=== PATIENT | female | born 1955 | race Caucasian/White ===

== ENCOUNTER 2020-01-31 10:23 | Outpatient (CLI) | payer MEDICARE, SELFPAY ==
--- NOTE | 2020-01-31 10:40 | MM_ITS ---
WS: [id number] BILATERAL DIGITAL DIAGNOSTIC MAMMOGRAM MAMMOGRAPHY WITH CAD CLINICAL INFORMATION: BREAST TENDERNESS/LUMP RT 2 O'CLOCK COMPARISON: None. TECHNIQUE: Bilateral CC, MLO, and ML views. FINDINGS: Scattered fibroglandular densities bilaterally. Palpable marker near the areola right breast. No unde rlying mammographic abnormalities. Ultrasound is pending. Otherwise No suspicious focal mass, asymmetry, calcifications, or architectural distortion. ULTRASOUND BREAST RIGHT TECHNIQUE: Ultrasound right breast focused area of concern. CLINICAL INFORMATION: BREAST TENDERNESS/LUMP RT 2 O'CLOCK COMPARISON: None. FINDINGS: Ultrasound right breast at the 2:00 position. Normal underlying breast tissue. No evidence of underly ing pathologic mass or lesion. No lesions to target for biopsy. No suspicious findings. MM/[place] [id number] BI-RADS: 2-Benign FOLLOW UP: 1 Year Follow-up Recommend return to annual screening mammography.
== END 2020-01-31 10:24 | disposition home or self-care (01) ==
PROVIDERS: PCP Nurse Practitioner Family; Visit Provider Nurse Practitioner Family
DX: N63.12 Unspecified lump in the right breast, upper inner quadrant (principal); N64.4 Mastodynia
CPT/HCPCS: 76642; 77066

== ENCOUNTER → 2022-06-09 08:52 | Outpatient (BNVA) | payer MEDICARE, SELFPAY | PROVIDERS: PCP Clinical Nurse Specialist Adult Health; Visit Provider Clinical Nurse Specialist Adult Health | DX: R55 Syncope and collapse (principal); R53.83 Other fatigue; G25.81 Restless legs syndrome; J30.9 Allergic rhinitis, unspecified; M25.562 Pain in left knee | CPT/HCPCS: 80053; 85025 ==

== ENCOUNTER → 2022-07-07 08:13 | Outpatient (BNVA) | payer MEDICARE, SELFPAY | PROVIDERS: PCP Clinical Nurse Specialist Adult Health; Referring Provider Clinical Nurse Specialist Adult Health; Visit Provider Orthopaedic Surgery | DX: M76.52 Patellar tendinitis, left knee (principal) | CPT/HCPCS: 73560; 73565; 99203; J3301; J3490 ==

== ENCOUNTER 2022-11-18 12:06 | Outpatient (CLI) | payer MEDICARE, SELFPAY ==
--- NOTE | 2022-11-18 12:30 | CT_ITS ---
WS: [id number] CT ABDOMEN PELVIS TECHNIQUE: Noncontrast CT of the abdomen and pelvis with coronal and sagittal reformatted images. CLINICAL INFORMATION: RUQ pain, epigastric pain, RLQ pain COMPARISON: None. DLP: 784.[address] scans at [facility] use at least one of these dose optimization techniques: automated e xposure control; mA and/or kV adjustment per patient size (includes targeted exams where dose is matc hed to clinical indication); or iterative reconstruction. FINDINGS: Prior cholecystectomy. Prior hysterectomy. RIGHT nephrectomy. Postoperative changes greater curvature the stomach likely gastric sleeve or gastric bypass. The Noncontrast liver is normal. No intrahepatic biliary ductal dilatation. No significant dilatation of the common bile duct. Mild fatty atrophy of the pancreas. Enlargement of the RIGHT hepatic lobe. Noncontrast spleen appears normal. LEFT adrenal gland is normal. RIGHT adren al gland and RIGHT kidney resected. Normal nephrectomy bed. LEFT peripelvic cysts. No hydronephrosis in LEFT kidney. Normal caliber abdominal aorta. Mild aortic calcification. Sigmoid diverticulosis. No evidence of acu te diverticulitis. Colon is decompressed. No evidence of small or large bowel obstruction. Small fat-containing umbilical hernia. No abdominal or pelvic lymphadenopathy. No inguinal lymphadenopathy. 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 CT/CT abdomen pelvis wo con [id number] IMPRESSION: 1. Prior cholecystectomy. No common bile duct dilatation. No intrahepatic bili syd[place] dilatation. 2. Sigmoid diverticulosis. No evidence of acute diverticulitis. 3. Prior postoperative changes hysterectomy and gastric procedure. 4. Prior postoperative changes RIGHT nephrectomy with resection of the RIGHT a drenal gland. Normal RIGHT nephrectomy bed. No recurrence in this location. 5. No other acute findings.
== END 2022-11-18 12:07 | disposition home or self-care (01) ==
PROVIDERS: PCP Clinical Nurse Specialist Adult Health; Visit Provider Clinical Nurse Specialist Adult Health
DX: R13.10 Dysphagia, unspecified (principal); R10.11 Right upper quadrant pain; R10.31 Right lower quadrant pain; Z90.49 Acquired absence of other specified parts of digestive tract; K57.30 Diverticulosis of large intestine without perforation or abscess without bleeding; Z90.5 Acquired absence of kidney
CPT/HCPCS: 74176; 80053; 82150; 83690; 85025; 85651; 86140

== ENCOUNTER → 2022-11-30 13:07 | Outpatient (BNVA) | payer MEDICARE, SELFPAY | PROVIDERS: PCP Clinical Nurse Specialist Adult Health; Visit Provider Clinical Nurse Specialist Adult Health | DX: E87.6 Hypokalemia (principal) | CPT/HCPCS: 80053 ==

== ENCOUNTER 2022-12-06 11:07 | Emergency (ER) | payer MEDICARE, SELFPAY ==
[2022-12-06 11:15] VITALS: BP 173/98; PULSE 93; O2SAT 94; BMI 37.5
[2022-12-06 12:14] LABS: Basophils % 0.4 %; Eosinophils % 0.2 %; Hematocrit 44.8 % (37.0-47.0); Hemoglobin 14.2 g/dL (11.5-15.3); Lymphocytes # 1.4 10^3/uL (0.8-4.8); Lymphocytes % 15.3 %; Mean Corpuscular HGB Conc 31.7 g/dL (30.0-36.0); Mean Corpuscular Hemoglobin 27.9 pg (28.0-34.0); Mean Platelet Volume 9.9 fL (7.4-10.4); Monocytes # 0.5 10^3/uL (0.2-0.9); Neutrophils # 7.05 10^3/uL (1.8-7.7); Neutrophils % 78.7 %; Nucleated Red Blood Cells % 0 %; Platelet Count 205 10^3/cmm (130-400); Red Blood Count 5.09 10^6/uL (4.1-5.3)
[2022-12-06 12:28] LABS: Lactate (Lactic Acid level) 1.2 mmol/L (0.5-2.2)
[2022-12-06 12:29] LABS: Alanine Aminotransferase 12 U/L (0-33); Albumin Level 4.2 g/dL (3.5-5.2); Alkaline Phosphatase 49 U/L (35-105); Anion Gap 16.7 (5-19); Aspartate Amino Transferase 16 U/L (0-32); Blood Urea Nitrogen 22 mg/dL (8-23); Calcium 9.5 mg/dL (8.5-10.5); Carbon Dioxide 25 mmol/L (22-29); Chloride 102 mmol/L (98-107); Globulin 2.8 g/dL (1.3-4.6); Glomerular Filtration Rate 37.4 mL/min (90-130); Glucose 142 mg/dL (65-115); Lipase 19 U/L (13-60); Magnesium 1.8 mg/dL (1.7-2.3); Osmolality Calculated 296 mOsm/kg (285-295); Potassium 3.7 mmol/L (3.5-5.1); Sodium 140 mmol/L (136-145); Total Bilirubin 0.4 mg/dL (0.15-1.2)
--- NOTE | 2022-12-06 14:30 | ED_ITS ---
HPI - Abdominal Pain General: Chief Complaint: Abdominal Pain Stated Complaint: n/v/d Time Seen by Provider: 12/06/22 14:19 History of Present Illness: Ms. Vilchis is a 67-year-old lady with history of diverticulitis presenting to the emergency department for nausea, vomiting, diarrhea and abdominal pain. She reports onset of symptoms subacute this morning with numerous episodes of nonbilious and nonbloody emesis associated with diarrhea. Symptoms have persisted since onset. Moderate to severe in intensity. Periumbilical pain without significant radiation. No other specific changes in health, exacerbating, or alleviating factors identified. Onset (ago): hour(s) Pain Consistency: constant Location: Diffuse and LLQ Severity: moderate Migration to: no migration Exacerbating factors: eating and movement Associated Symptoms: Reports chills, diarrhea, nausea and vomiting Review of Systems General: Reports: 10 or more systems reviewed and unremarkable except in HPI and below Const: Reports: chills GI: Reports: nausea, vomiting and diarrhea PFSH ED PFSH: Medical History Diverticulitis Essential hypertension Foot fracture, left hx of left foot fracture, February 2019 Hyperlipidemia IBS (irritable bowel syndrome) DONA (obstructive sleep apnea) uses CPAP Renal cancer 2008 Splenic artery aneurysm hx of splenic aneurysm February 2019 Surgical History History of right nephrectomy Hx of cholecystectomy Hx of hysterectomy Family History Mother Cancer ovarian cancer Father Cancer renal cancer Social History Smoking and tobacco status: never smoked Alcohol intake: never 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 occupational status: 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 Physical Exam Const: COMMON NORMALS: alert GENERAL APPEARANCE: cooperative and well developed HENMT: COMMON NORMALS: normocephalic and atraumatic HEAD & SCALP: normo cephalic and atraumatic Eye: COMMON NORMALS: conjunctivae normal CONJUNCTIVA: Yes conjunctivae normal SCLERA: sclerae normal Neck/C-Spine: COMMON NORMALS: supple GENERAL: Yes trachea midline Resp: COMMON NORMALS: clear to auscultation bilaterally EFFORT & INSPECTION: Yes able to speak in complete sentences AUSCULTATION: clear to auscultation bilaterally Cardio: COMMON NORMALS: regular rate and regular rhythm RATE: regular rate RHYTHM: regular rhythm GI: COMMON NORMALS: Soft to palpation PALPATION: Yes Soft to palpation, Yes Tenderness to palpation present (GI), No Guarding due to palpation present (GI) and No Rigid due to palpation Extremity: GENERAL: Yes normal exam except as noted and No edema Neuro: COMMON NORMALS: moves all extremities SENSORIUM/ORIENTATION: Yes al ert and No Orientation impaired Psych: COMMON NORMALS: mental status grossly normal and Normal thought process present THOUGHT PROCESS: Normal thought process present Course Vital Signs: Vital signs: Vital Signs Temperature 97.5 F L 12/06/22 14:32 Pulse Rate 90 12/06/22 20:09 Respiratory Rate 16 12/06/22 20:09 Blood Pressure 173/98 12/06/22 11:15 Pulse Oximetry 97 12/06/22 20:09 Oxygen Delivery Me thod Room Air 12/06/22 19:00 MDM - Abdominal Pain Medical Decision Making 67-year-old lady presenting with abdominal symptoms x1 day. She is nontoxic in appearance. She has abdominal tenderness with no evidence of acute surgical abdomen. EKG demonstrates sinus tachycardia with normal axis and intervals, no STEMI. No significant hematologic abnormalities. Metabolic panel with mildly elevated creatinine, lactate is normal. No evidence of urinary tract infection. CT demonstrates no acute intra-abdominal pathology. Incidental findings disc ussed with patient. Patient treated with antiemetic, analgesia and after additional treatments feels improved. Etiology of patient's symptoms is unspecified abdominal pain associated with nausea, vomiting, diarrhea. Given ability to control patient's symptoms in the emergency department she is adequate for outpatient management. The results of ED evaluation were discussed with the patient including prescriptions and/or symptomatic cares (if applicable) including appropriate and responsible use, followup plan, and return precautions. The patient verbalized understanding and felt safe for discharge. Medical Records I reviewed the patient's medical records. Lab Data I reviewed the patient's lab results. 12/06/22 11:54 12/06/22 11:54 Labs/Radiology: Radiology Impressions Abdomen/Pelvis CT 12/06/22 15:16 IMPRESSION: No acute findings. Laboratory Results WBC 9.0 10^3/uL (4.0-10.0) 12/06/22 11:54 RBC 5.09 10^6/uL (4.1-5.3) 12/06/22 11:54 Hgb 14.2 g/dL (11.5-15.3) 12/06/22 11:54 Hct 44.8 % (37.0-47.0) 12/06/22 11:54 MCV 88.0 fl (81-99) 12/06/22 11:54 MCH 27.9 pg (28.0-34.0) L 12/06/22 11:54 MCHC 31.7 g/dL (30.0-36.0) 12/06/22 11:54 RDW 14.0 % (12.1-15.1) 12/06/22 11:54 Plt Count 205 10^3/cmm (130-400) 12/06/22 11:54 MPV 9.9 fL (7.4-10.4) 12/06/22 11:54 Neut % (Auto) 78.7 % 12/06/22 11:54 Lymph % (Auto) 15.3 % 12/06/22 11:54 Dewey % (Auto) 5.0 % 12/06/22 11:54 Eos % (Auto) 0.2 % 12/06/22 11:54 Baso % (Auto) 0.4 % 12/06/22 11:54 Neut # (Auto) 7.05 10^3/uL (1.8-7.7) 12/06/22 11:54 Lymph # (Auto) 1.4 10^3/uL (0.8-4.8) 12/06/22 11:54 Dewey # (Auto) 0.5 10^3/uL (0.2-0.9) 12/06/22 11:54 Eos # (Auto) 0.0 10^3/uL (0.0-0.8) 12/06/22 11:54 Baso # (Auto) 0.0 10^3/uL (0.0-0.1) 12/06/22 11:54 Nucleated RBC % (auto) 0 % 12/06/22 11:54 Nucleated RBCs # 0.0 /100WBC 12/06/22 11:54 Sodium 140 mmol/L (136-145) 12/06/22 11:54 Potassium 3.7 mmol/L (3.5-5.1) 12/06/22 11:54 Chloride 102 mmol/L (98-107) 12/06/22 11:54 Carbon Dioxide 25 mmol/L (22-29) 12/06/22 11:54 Anion Gap 16.7 (5-19) 12/06/22 11:54 BUN 22 mg/dL (8-23) 12/06/22 11:54 Creatinine 1.4 mg/dL (0.5-0.9) H 12/06/22 11:54 GFR Calculation 37.4 mL/min (90-130) L 12/06/22 11:54 Glucose 142 mg/dL (65-115) H 12/06/22 11:54 Calculated Osmolality 296 mOsm/kg (285-295) H 12/06/22 11:54 Lactate 1.2 mmol/L (0.5-2.2) 12/06/22 11:54 Calcium 9.5 mg/dL (8.5-10.5) 12/06/22 11:54 Magnesium 1.8 mg/dL (1.7-2.3) 12/06/22 11:54 Total Bilirubin 0.4 mg/dL (0.15-1.2) 12/06/22 11:54 AST 16 U/L (0-32) 12/06/22 11:54 ALT 12 U/L (0-33) 12/06/22 11:54 Alkaline Phosphatase 49 U/L (35-105) 12/06/22 11:54 Total Protein 7.0 g/dL (6.6-8.7) 12/06/22 11:54 Albumin 4.2 g/dL (3.5-5.2) 12/06/22 11:54 Globulin 2.8 g/dL (1.3-4.6) 12/06/22 11:54 Lipase 19 U/L (13-60) 12/06/22 11:54 Urine Color Straw (Yellow) 12/06/22 16:48 Urine Appearance Clear (CLEAR) 12/06/22 16:48 Urine pH 5 (5-7) 12/06/22 16:48 Ur Specific [place] 1.005 (1.005-1.030) 12/06/22 16:48 Urine Protein 1+ (Negative) H 12/06/22 16:48 Urine Glucose (UA) Norm (Normal) 12/06/22 16:48 Urine Ketones Negative (Negative) 12/06/22 16:48 Urine Blood Trace (Negative) H 12/06/22 16:48 Urine Nitrate Negative (Negative) 12/06/22 16:48 Urine Bilirubin Neg (Negative) 12/06/22 16:48 Urine Urobilinogen Norm mg/dL (Negative) 12/06/22 16:48 Ur Leukocyte Esterase Negative (Negative) 12/06/22 16:48 Urine RBC Rare /hpf (0-2) 12/06/22 16:48 Urine WBC 0-4 /hpf (0-5) H 12/06/22 16:48 Ur Squamous Epith Cells 0-4 /hpf (0-5) H 12/06/22 16:48 Amorphous Sediment Not Reportable 12/06/22 16:48 Urine Bacteria Trace /hpf (NONE) 12/06/22 16:48 Discharge Plan Discharge Patient Disposition: Home Clinical Impression: Abdominal pain, Nausea and vomiting Condition: Stable Prescriptions: New ondansetron 4 mg tablet,disintegrating 4 mg PO Q8H PRN (Reason: nausea and vomiting) Qty: 15 0RF No Action albuterol sulfate 90 mcg/actuation HFA aerosol inhaler 2 inh inhalation QID PRN (Reason: shortness of breath or wheezing) Qty: 8.5 2RF ropinirole 0.5 mg tablet 0.5 mg PO DAILY PRN (Reason: restless leg(s)) 90 Days Qty: 90 3RF potassium chloride 20 mEq tablet extended release 20 meq PO BID 90 Days Qty: 180 3RF amoxicillin-pot clavulanate [Augmentin] 500-125 mg tablet 1 tab PO TID 7 Days Qty: 21 0RF colesevelam [WelChol] 625 mg tablet 625 mg PO BID 90 Days Qty: 180 3RF atorvastatin 20 mg tablet 20 mg PO BEDTIME hydrochlorothiazide 25 mg tablet 25 mg PO QAM losartan 100 mg tablet 100 mg PO BEDTIME escitalopram oxalate 10 mg tablet 10 mg PO QAM Discharge Orders: Discharge ED (Routine); Ordered 12/06/22 Ordered By: Tyrel Fisher Referrals: Michael Kelly, [employer] [Primary Care Provider] - Discharge Diet: Advance as tolerated and Clear Liquid Discharge Activity: Increase activity as tolerated Patient Instructions: Acute Nausea and Vomiting (ED), Abdominal Pain (ED), Opioid Safety (ED) Activity Restrictions/Additional Instructions: Thank you for visiting the emergency department. You were seen and evaluated for abdominal pain with nausea and vomiting. The exact cause of your symptoms is unclear however does not appear to need hospitalization at this time given improvement. Follow-up with your primary care provider. Start with clear liquid diet and advance slowly as tolerated starting with bland foods. Return to the emergency department for worsening of symptoms or anything else that you are concerned about and feel needs emergency department evaluation. Coding Level of Care Code ED Code Enforcement Officer for Marino Weaver
[2022-12-06 14:32] VITALS: TEMP 36.4
[2022-12-06] MEDS: sodium chloride 0.9% 1,000 ML 999 ML IV (15:05)
[2022-12-06] MEDS: ondansetron 2 mg/ML SDV 2 mL 4 MG IVP (15:05)
[2022-12-06] MEDS: fentaNYL 50 mcg/mL INJ 2mL IVP (15:12)
--- NOTE | 2022-12-06 15:16 | CTR_ITS ---
PROCEDURE INFORMATION: Exam: CT Abdomen And Pelvis With Contrast Exam date and time: 12/06/2022 3:34 PM Age: 67 years old Clinical indication: Nausea and vomiting; Abdominal pain; Periumbilical; Prior surgery; Surgery date: 6+ months; Surgery type: R kidney, gb, hyster; Additional info: Periumbilical pain, nausea, vomiting, diarrhea TECHNIQUE: Imaging protocol: Computed tomography of the abdomen and pelvis with contrast. Radiation optimization: All CT scans at this facility use at least one of these dose optimization techniques: automated exposure control; mA and/or kV adjustment per patient size (includes targeted exams where dose is matched to clinical indication); or iterative reconstruction. Contrast material: OMNI 350; Contrast volume: 80 ml; Contrast route: INTRAVENOUS (IV); REPORTING DATA: Count of CT and Cardiac NM exams in prior 12 months: This patient has received [address] and 0 known cardiac nuclear medicine studies in the 12 months prior to the current study. COMPARISON: CT abdomen pelvis wo con [id number] 11/18/2022 12:26 PM RADIATION DOSE METRICS: Total DLP (mGy-cm): 967.05 FINDINGS: Liver: Normal. No mass. Gallbladder and bile ducts: Cholecystectomy. No ductal dilation. Pancreas: Normal. No ductal dilation. Spleen: Normal. No splenomegaly. Adrenal glands: Right adrenalectomy. Left adrenal gland is unremarkable. Kidneys and ureters: Right nephrectomy. Left perirenal cysts again noted. No hydronephrosis. Stomach and bowel: Colonic diverticulosis without findings of acute diverticulitis. Sequela of gastric sleeve. No obstruction. No mucosal thickening. Appendix: No evidence of appendicitis. Intraperitoneal space: Unremarkable. No free air. No significant fluid collection. Vasculature: Unremarkable. No abdominal aortic aneurysm. Lymph nodes: Unremarkable. No enlarged lymph nodes. Urinary bladder: Unremarkable as visualized. Reproductive: Hysterectomy. Bones/joints: No acute fracture. Soft tissues: Unremarkable. CT/CT abdomen pelvis w con* [id number] IMPRESSION: No acute findings.
[2022-12-06 15:30] VITALS: PULSE 103; O2SAT 100
[2022-12-06] MEDS: iohexol 350 mg/mL 500 mL Btl (per mL) IV (15:38)
[2022-12-06] MEDS: metoclopramide 5 mg/mL SDV 2 mL 10 MG IVP (15:55)
[2022-12-06] MEDS: dicyclomine 10 mg Capsule PO (16:25)
[2022-12-06 17:00] VITALS: PULSE 103; O2SAT 97
[2022-12-06] MEDS: diphenhydrAMINE 50 mg/mL SDV 1mL 12.5 MG IVP (17:07)
[2022-12-06 17:11] LABS: Add Urine Microscopic? YES; Bilirubin Urine Neg (Negative); Blood Urine Trace (Negative); Glucose Urine UA Norm (Normal); Ketones Urine Negative (Negative); Leukocyte Esterase Urine Negative (Negative); Nitrate Urine Negative (Negative); Protein Urine 1+ (Negative); Specific Gravity, Urine 1.005 (1.005-1.030); Urine Appearance Clear (CLEAR); Urine Color Straw (Yellow); Urobilinogen Urine Norm (Negative); pH Urine 5 (5-7)
[2022-12-06] MEDS: prochlorperazine 10 mg/2 mL Inj 5 MG IVP (17:14)
[2022-12-06 17:26] LABS: Add Urine Culture? No; Bacteria Urine TRACE /hpf; RBC Urine RARE /hpf (0-2); Squamous Epithelial Cell Urine 0-4 /hpf (0-5); WBC Urine 0-4 /hpf (0-5)
[2022-12-06 19:00] VITALS: PULSE 90; RESP 16; O2SAT 97
--- NOTE | 2022-12-06 19:08 | PC.NURSE ---
Shift report received from Benjamín Moon RN. Pt is resting on right side. Family at bedside. pt states her nausea is better and abd pain is gone.
--- NOTE | 2022-12-06 19:21 | ECG_ITS ---
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 Measurements Intervals Cub Run Rate: 109 P: 64 AR: 197 QRS: 30 QRSD: 72 T: 60 QT: 338 QTc: 456 Interpretive Statements SINUS TACHYCARDIA ABNORMAL RHYTHM ECG No previous ECG available for comparison Electronically Signed On 12-07-2022 14:26:46 CDT by Merritt Arreguin M.D. [email or web address]
--- NOTE | 2022-12-06 19:46 | PC.NURSE ---
pt up to restroom with family member at this time
[2022-12-06 20:09] VITALS: PULSE 90; RESP 16; O2SAT 97
== END 2022-12-06 20:10 | disposition home or self-care (01) ==
PROVIDERS: Emergency Provider Emergency Medicine; PCP Clinical Nurse Specialist Adult Health
DX: R10.32 Left lower quadrant pain (principal); R11.2 Nausea with vomiting, unspecified; I10 Essential (primary) hypertension; E78.5 Hyperlipidemia, unspecified; Z85.528 Personal history of other malignant neoplasm of kidney; Z90.5 Acquired absence of kidney
CPT/HCPCS: 36415; 74177; 80053; 81001; 83605; 83690; 83735; 85025; 93005; 96361; 96374; 96375; 99285; J0780; J1200; J2405; J2765; J3010; J7030; Q9967

== ENCOUNTER → 2023-01-04 09:11 | Outpatient (BNVA) | payer MEDICARE, SELFPAY | PROVIDERS: PCP Clinical Nurse Specialist Adult Health; Visit Provider Clinical Nurse Specialist Adult Health | DX: E87.6 Hypokalemia (principal) | CPT/HCPCS: 80048 ==

== ENCOUNTER → 2023-03-08 07:50 | Outpatient (BNVA) | payer MEDICARE, SELFPAY | PROVIDERS: PCP Clinical Nurse Specialist Adult Health; Referring Provider Clinical Nurse Specialist Adult Health; Visit Provider Nurse Practitioner Family | DX: L57.0 Actinic keratosis (principal); Z85.828 Personal history of other malignant neoplasm of skin; L57.8 Other skin changes due to chronic exposure to nonionizing radiation; L85.3 Xerosis cutis; D22.5 Melanocytic nevi of trunk; L81.4 Other melanin hyperpigmentation; L82.1 Other seborrheic keratosis | CPT/HCPCS: 17004; 99203 ==

== ENCOUNTER → 2023-05-31 08:56 | Outpatient (BNVA) | payer MEDICARE, SELFPAY | PROVIDERS: PCP Clinical Nurse Specialist Adult Health; Visit Provider Clinical Nurse Specialist Adult Health | DX: L65.9 Nonscarring hair loss, unspecified (principal); N18.30 Chronic kidney disease, stage 3 unspecified | CPT/HCPCS: 80053; 82607; 82728; 82746; 83550; 84436; 84443; 84481; 85025 ==

== ENCOUNTER 2023-06-04 10:18 | Outpatient (CLI) | payer MEDICARE, SELFPAY ==
--- NOTE | 2023-06-04 10:28 | MM_ITS ---
WS: [id number] Bilateral screening 3D tomosynthesis digital mammogram, 06/04/2023 Clinical Data: Z00.00 - Encounter for general adult medical examination ... Comparison: 01/31/2020, 09/29/2017, 01/03/2016. Findings: The breast parenchymal pattern shows fibroglandular tissue. No spiculated masses or clustered calcifi cations are seen. There are no secondary signs of carcinoma. Impression: 1. Negative bilateral mammogram unchanged. 2. Recommend annual screening mammograms. MM/[place] [id number] BIRADS: 1-Negative FOLLOW UP: 1 Year Follow-up The CAD chemical checker was used.
== END 2023-06-04 10:19 | disposition home or self-care (01) ==
LOC: RAD 10:19
PROVIDERS: PCP Clinical Nurse Specialist Adult Health; Visit Provider Clinical Nurse Specialist Adult Health
DX: Z12.31 Encounter for screening mammogram for malignant neoplasm of breast (principal)
CPT/HCPCS: 77063; 77067

== ENCOUNTER 2024-02-18 06:31 | Outpatient (CLI) | payer MEDICARE, SELFPAY ==
--- NOTE | 2024-02-18 06:51 | MR_ITS ---
WS: [id number] MRI/MRCP OF THE ABDOMEN WITHOUT GADOLINIUM ENHANCEMENT TECHNIQUE: Coronal T2 Fase BH, Axial T2 Fase BH, Axial T2 FS BH, Zxial 3D Mancuso BH, Axial DWI BH, 2D MRCP Radial BH, 3D MRCP (Resp), and Axial 3D Dyn BH Post sequences. CLINICAL INFORMATION: spasm sphinter of Oddi COMPARISON: CT 12/06/2022 FINDINGS: Prior cholecystectomy. Prior RIGHT adrenalectomy and nephrectomy. LEFT adrenal gland is normal. LEFT pararenal cysts. No hydronephrosis. Normal spleen. Postoperative changes gastric surgery with small e sophageal hiatal hernia. Normal pancreas. Normal portal vein and splenic vein. Normal caliber upper a bdominal aorta. No bile duct dilatation. No evidence of choledocholithiasis. No pancreatic duct dilat ation. Few tiny hepatic cysts. MR/MR MRCP [id number] Impression: 1. Prior cholecystectomy. 2. No bile duct dilatation or filling defects. 3. Normal pancreas. 4. Prior RIGHT adrenalectomy and RIGHT nephrectomy.
== END 2024-02-18 06:32 | disposition home or self-care (01) ==
LOC: RAD 06:32
PROVIDERS: PCP Clinical Nurse Specialist Adult Health; Visit Provider Internal Medicine
DX: K83.4 Spasm of sphincter of Oddi (principal); Z90.49 Acquired absence of other specified parts of digestive tract; Z90.5 Acquired absence of kidney; N28.1 Cyst of kidney, acquired; K44.9 Diaphragmatic hernia without obstruction or gangrene
CPT/HCPCS: 74181

== ENCOUNTER → 2024-03-06 08:10 | Outpatient (BNVA) | payer MEDICARE, SELFPAY | PROVIDERS: PCP Clinical Nurse Specialist Adult Health; Visit Provider Nurse Practitioner Family | DX: D48.5 Neoplasm of uncertain behavior of skin (principal); L57.8 Other skin changes due to chronic exposure to nonionizing radiation; L85.3 Xerosis cutis; D22.5 Melanocytic nevi of trunk; L81.4 Other melanin hyperpigmentation; L82.1 Other seborrheic keratosis | CPT/HCPCS: 11102; 99213 ==

== ENCOUNTER 2024-03-28 07:51 | Outpatient (CLI) | payer MEDICARE, SELFPAY ==
--- NOTE | 2024-03-28 07:54 | FL_ITS ---
WS: [id number] Examination: FL barium enema w air* [id number] Reason for Exam: SPASM,SPHINCTER OF ODDI diarrhea. Concern for obstruction. Irritable bowel syndrome. History of recent colonoscopy. By patient's report no polyps were found Date: March 28, 2024 Comparison: None. Findings: An air-contrast barium enema was performed. Barium and air were instilled to the level of the cecum. Diverticulosis is identified involving the descending and sigmoid colons. Initially there was narrowi ng/spasm involving the sigmoid which was later noted to distend and not represent a persistent strict ure. There is no annular constricting lesion. There is no evidence to suggest inflammatory bowel disease o r ischemic change. No persistent filling defects were identified. Minimal stool seen in the right colon. FL/FL barium enema w air* [id number] Impression: There is no colonic obstruction. There is diverticulosis with suspected spasm in the sigmoid region.
== END 2024-03-28 07:52 | disposition home or self-care (01) ==
LOC: RAD 07:51
PROVIDERS: PCP Clinical Nurse Specialist Adult Health; Visit Provider Internal Medicine
DX: K57.30 Diverticulosis of large intestine without perforation or abscess without bleeding (principal); K58.0 Irritable bowel syndrome with diarrhea
CPT/HCPCS: 74280

== ENCOUNTER → 2024-07-17 10:44 | Outpatient (BNVA) | payer MEDICARE, SELFPAY | PROVIDERS: PCP Clinical Nurse Specialist Adult Health; Visit Provider Internal Medicine Cardiovascular Disease | DX: R07.9 Chest pain, unspecified (principal); Z79.01 Long term (current) use of anticoagulants; R53.1 Weakness; I48.91 Unspecified atrial fibrillation | CPT/HCPCS: 36415; 80053; 84443; 85025; 85610; 93005; 99205 ==

== ENCOUNTER 2024-08-07 08:27 | Outpatient (CLI) | payer MEDICARE, SELFPAY ==
--- NOTE | 2024-08-07 08:30 | ECG_ITS ---
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 Interpretive Statements Lung unchanged pre/post procedure; Intraprocedure shortess of breath; Symptoms resoled by discharge PROCEDURE: At the baseline, the EKG revealed normal sinus rhythm with normal ST Ts. The baseline heart was 79 bpm with a blood pressue of 150/76 mm of Hg Lexiscan was infused over a period of 20 seconds. A total of 0.4 milligrams of Lexiscan was infused. The stress phase was continued for a total of 5 minutes. Heart rate at the end of the stress phase was 89 bpm with a blood pressure 139/71 mm of Hg. The EKG at the peak infusion revealed no significant changes. Sestamibi was injected 20 seconds after the Lexiscan infusion. Heart rate at the end of the recovery phase was 82 bpm with a blood pressure of 141/64 mm of Hg. CONCLUSION: 1. No significant EKG changes with the LexiScan infusion 2. No LexiScan induced chest pain or cardiac arrhythmia 3. Normal blood pressure and heart rate response 4. Sestamibi/sestamibi perfusion scan pending; see separate report. Electronically Signed On 08-11-2024 16:00:44 [employer]TER by Karo Barrett M.D. [email or web address]
--- NOTE | 2024-08-07 08:31 | NMCV_ITS ---
NM sunil perf SPECT r/s* [id number] Verito Nam Age: 69 Gender: F : 1955 Exam Date: 08/07/2024 08:31 Ordering Phys: Technologist: YAAKOV Mnan Exam Location: [facility] Indications: cp STRESS TEST Please see separate stress test report in [facility] for full findings IMAGE PROTOCOL Rest/Stress 1 Lexiscan Day Radiopharmaceutical Dose (mCi) Administration Site Administered by Rest: Tc-99m 10.8 IV YAAKOV Mann Sestamibi Stress:Tc-99m 32.9 IV YAAKOV Arora Sestamibi Rest: 07-Aug-2024 60 Discovery 630 Stress: 07-Aug-2024 30 Discovery 630 0.4mg Lexiscan. Images obtained in supine and prone position. SPECT RESULTS Technical Quality: Good Raw Data Analysis: Normal Image Corrections: No attenuation or motion correction applied Summed Stress Score: 0 Summed Rest Score: 0 Summed Difference Score: 0 PERFUSION FINDINGS Fairly uniform myocardial tracer uptake with no significant Perfusion abnormalities. FUNCTIONAL RESULTS (calculated via Gated SPECT) Stress Image LV EF (%): 74 Stress EDV (mL):101 TID: 1.11 Stress ESV (mL):26 FUNCTIONAL FINDINGS: Segmental wall motion analysis revealing no gross wall motion abnormalities IMPRESSIONS 1, Myocardial perfusion imaging revealing uniform myocardial tracer uptake with no significant Perfusion abnormalities. 2, normal LV ejection fraction of 74%. 3. LV wall motion analysis revealing no gross wall motion abnormalities.. 4. Normal LV volume Low probability for coronary ischemia, based on the above findings Dr Karo Barrett MD FAC (Electronically Signed) Final Date: 07 August 2024 19:20 S
[2024-08-07 08:40] VITALS: BMI 39.1
[2024-08-07] MEDS: regadenoson 0.4 Mg/5 ml Syringe IVP (10:07)
[2024-08-07 10:20] VITALS: BP 141/64; PULSE 82
== END 2024-08-07 08:28 | disposition home or self-care (01) ==
LOC: CDL 08:28
PROVIDERS: PCP Clinical Nurse Specialist Adult Health; Visit Provider Internal Medicine Cardiovascular Disease
DX: Z98.61 Coronary angioplasty status (principal); R06.02 Shortness of breath
CPT/HCPCS: 36415; 78452; 93017; 96374; A9500; J2785

== ENCOUNTER 2024-08-07 11:36 | Outpatient (CLI) | payer MEDICARE, SELFPAY ==
--- NOTE | 2024-08-07 14:00 | USCV_ITS ---
Verito Nam Age: 69 Gender: F : 1955 Exam Date: 08/07/2024 11:49 Ordering Phys: Karo Barrett MD ([email or web address]) Technologist: CT Exam Location: [facility] Indication: BP: 140 / 87 HR: 70 Rhythm: Sinus Technical Quality: Adequate MEASUREMENTS (Male / Female) Normal Values 2D ECHO LVOT Diameter 2.0 cm LV Ejection Fraction MOD 4C 71.6 % LV Ejection Fraction MOD 2C 75.0 % LV Ejection Fraction 2C AL 75.3 % LA Diameter 4.2 cm RA Systolic Volume 4C AL 51.2 ml RA Systolic Volume 4C MOD 52.2 ml LA Sys Volume AL 85.0 cm cubed LA Sys Volume Index AL 38.6 cm cubed/m squared Aorta at Sinotubular Diameter 2.7 cm M-MODE LA Ao Ratio MM 1.5 AV Cusp Separation MM 2.0 cm DOPPLER AV Peak Velocity 215.0 cm/s LVOT Peak Velocity 134.0 cm/s AV Area Cont Eq vti 2.2 cm squared AV Area Cont Eq pk 2.0 cm squared MV Peak Velocity 93.0 cm/s MV Area PHT 2.8 cm squared Mitral E to A Ratio 0.8 TR Peak Velocity 288.5 cm/s TR Peak Gradient 33.3 mmHg TR Mean Velocity 230.0 cm/s TR Mean Gradient 22.8 mmHg TR Velocity Time Integral 85.2 cm TV Peak E Velocity 79.0 cm/s PV Peak Velocity 96.0 cm/s FINDINGS Left Ventricle Normal left ventricular size and systolic function, EF 75%.no regional wall motion abnormalities. Mild left ventricular hypertrophy. Grade I/IV diastolic dysfunction (abnormal relaxation filling pattern), normal to mildly elevated filling pressures. Right Ventricle The right ventricle is normal in size and function. Right Atrium The right atrium is normal in size. Left Atrium Mildly increased left atrial size. Mitral Valve Mild mitral valve regurgitation. Aortic Valve Thickened aortic valve. Mild aortic valve regurgitation. Tricuspid Valve Trace tricuspid valve regurgitation. Estimated pulmonary artery peak systolic pressure 26 mmHg Pulmonic Valve No gross abnormalities noted Pericardium Normal pericardium without effusion. Aorta Normal ascending aorta dimension. IVC Inferior vena cava not visualized. CONCLUSIONS Normal left ventricular size and systolic function, EF 75%.no regional wall motion abnormalities. Mild left ventricular hypertrophy. Grade I/IV diastolic dysfunction (abnormal relaxation filling pattern), normal to mildly elevated filling pressures. Mildly increased left atrial size. Mild mitral valve regurgitation. Thickened aortic valve. Mild aortic valve regurgitation. Trace tricuspid valve regurgitation. Estimated pulmonary artery peak systolic pressure 26 mmHg. There is no pericardial effusion. There are no intracardiac masses. No similar previous studies are available for comparison Dr Karo Barrett MD [facility] (Electronically Signed) Final Date: 10 August 2024 20:32 S
== END 2024-08-07 11:37 | disposition home or self-care (01) ==
LOC: RAD 11:38
PROVIDERS: PCP Clinical Nurse Specialist Adult Health; Visit Provider Internal Medicine Cardiovascular Disease
DX: I50.30 Unspecified diastolic (congestive) heart failure (principal); R06.09 Other forms of dyspnea; I35.9 Nonrheumatic aortic valve disorder, unspecified
CPT/HCPCS: 93306

== ENCOUNTER → 2024-11-10 09:15 | Outpatient (BNVA) | payer MEDICARE, SELFPAY | PROVIDERS: PCP Clinical Nurse Specialist Adult Health; Visit Provider Nurse Practitioner Family | DX: I48.0 Paroxysmal atrial fibrillation (principal); I10 Essential (primary) hypertension; N18.31 Chronic kidney disease, stage 3a; E78.1 Pure hyperglyceridemia | CPT/HCPCS: 99213 ==

== ENCOUNTER → 2025-03-06 08:15 | Outpatient (BNVA) | payer MEDICARE, SELFPAY | PROVIDERS: PCP Clinical Nurse Specialist Adult Health; Visit Provider Nurse Practitioner Family | DX: L57.8 Other skin changes due to chronic exposure to nonionizing radiation (principal); L81.4 Other melanin hyperpigmentation; X32.XXXA Exposure to sunlight, initial encounter; L85.3 Xerosis cutis; D22.5 Melanocytic nevi of trunk; Z08 Encounter for follow-up examination after completed treatment for malignant neoplasm; Z85.828 Personal history of other malignant neoplasm of skin; L57.0 Actinic keratosis; L56.8 Other specified acute skin changes due to ultraviolet radiation | CPT/HCPCS: 17000; 99213 ==

== ENCOUNTER → 2025-03-07 09:11 | Outpatient (BNVA) | payer MEDICARE, SELFPAY | PROVIDERS: PCP Clinical Nurse Specialist Adult Health; Visit Provider Clinical Nurse Specialist Adult Health | DX: N18.30 Chronic kidney disease, stage 3 unspecified (principal); E55.9 Vitamin D deficiency, unspecified; R73.9 Hyperglycemia, unspecified | CPT/HCPCS: 80053; 81003; 82306; 82607; 82728; 82746; 83036; 83540; 84100; 85025 ==

== ENCOUNTER → 2025-05-21 09:44 | Outpatient (BNVA) | payer MEDICARE, SELFPAY | PROVIDERS: PCP Clinical Nurse Specialist Adult Health; Visit Provider Internal Medicine Cardiovascular Disease | DX: I48.0 Paroxysmal atrial fibrillation (principal); Z79.01 Long term (current) use of anticoagulants; I12.9 Hypertensive chronic kidney disease with stage 1 through stage 4 chronic kidney disease, or unspecified chronic kidney disease; N18.31 Chronic kidney disease, stage 3a; E78.5 Hyperlipidemia, unspecified | CPT/HCPCS: 99214 ==

== ENCOUNTER → 2025-05-30 11:13 | Outpatient (BNVA) | payer MEDICARE, SELFPAY | PROVIDERS: PCP Clinical Nurse Specialist Adult Health; Visit Provider Clinical Nurse Specialist Adult Health | DX: G47.33 Obstructive sleep apnea (adult) (pediatric) (principal); E55.9 Vitamin D deficiency, unspecified; E53.8 Deficiency of other specified B group vitamins; E78.1 Pure hyperglyceridemia; N18.31 Chronic kidney disease, stage 3a | CPT/HCPCS: 80053; 80061; 82306; 82607; 85025 ==

== ENCOUNTER 2025-07-18 12:22 | Outpatient (CLI) | payer MEDICARE, SELFPAY ==
--- NOTE | 2025-07-18 12:25 | MM_ITS ---
WS: [id number] BILATERAL 3D TOMOSYNTHESIS DIGITAL SCREENING MAMMOGRAPHY WITH CAD CLINICAL INFORMATION: Z12.39 - Encounter for other screening for malignant neop... HISTORY: Screening mammogram. No current complaints. COMPARISON: 2022 TECHNIQUE: Bilateral CC and MLO views. FINDINGS: Scattered fibroglandular densities bilaterally. No suspicious focal mass, asymmetry, calcifications, or architectural distortion. No evidence of malignancy. Incidental benign calcifications LEFT breast. MM/MM scr tomosynthesis [id number] IMPRESSION: DENSITY: There are scattered areas of fibroglandular density. BI-RADS: 2 - Benign. FOLLOW UP: 1 Year Follow-up Recommend return to annual screening mammography.
--- NOTE | 2025-07-18 12:25 | XR_ITS ---
WS: [id number] SCREENING DEXA SCAN [employer]vent [employer] CLINICAL INFORMATION: Z78.0 - Asymptomatic menopausal state COMPARISON: None. FINDINGS: The L1-L4 bone mineral density measures 1.096 g/cm2. This corresponds to a T score score of -0.7 and Z score of -0.2. Left femoral neck bone mineral density measures 0.897 g/cm2. This corresponds to a T score of -0.9 and Z score of -0.2. Right femoral neck bone mineral density measures 0.874 g/cm2. This corresponds to a T score -1.1of and Z score of -0.4. Mean femoral neck bone mineral density measures 0.886 g/cm2. This corresponds to a T score of -1.0 and Z score of -0.3. XR/XR DEXA axial skeleton* [id number] IMPRESSION: Normal bone mineralization lumbar spine. Osteopenia femoral necks. Patient's FRAX calculated 10 year probability for major osteoporotic fracture i s 11.7% and osteoporotic hip fracture is 2.5%.
== END 2025-07-18 12:23 | disposition home or self-care (01) ==
LOC: RAD 12:23
PROVIDERS: PCP Clinical Nurse Specialist Adult Health; Visit Provider Clinical Nurse Specialist Adult Health
DX: Z12.31 Encounter for screening mammogram for malignant neoplasm of breast (principal); Z13.820 Encounter for screening for osteoporosis; Z78.0 Asymptomatic menopausal state; R92.323 Mammographic fibroglandular density, bilateral breasts; R92.1 Mammographic calcification found on diagnostic imaging of breast; M85.852 Other specified disorders of bone density and structure, left thigh; M85.851 Other specified disorders of bone density and structure, right thigh
CPT/HCPCS: 77063; 77067; 77080